=== PATIENT | female | born 1945 | race Caucasian/White ===

== ENCOUNTER 2021-08-21 14:26 | Emergency (ER) | payer OTHER, SELFPAY ==
--- NOTE | ~2021-08-21 | XR_ITS ---
EXAMINATION: XR CHEST CLINICAL INFORMATION: Chest pain. COMPARISON: None TECHNIQUE: Frontal view of the chest was obtained. FINDINGS: The lungs are well-expanded and clear. The heart size is enlarged. Pulmonary vascularity is normal. There is moderate spondylosis of dorsal spine. No lytic process seen. XR/XR chest 1V IMPRESSION: Unremarkable chest exam.
[2021-08-21 14:39] VITALS: BP 170/100; BP 182/104; PULSE 88; PULSE 90; RESP 18; TEMP 36.6; O2SAT 97; O2SAT 99; BMI 25.0
--- NOTE | 2021-08-21 14:56 | ED_ITS ---
HPI - Chest Pain General Chief Complaint: Chest Pain Stated Complaint: chest pain Time Seen by Provider: 08/21/21 14:55 Source: patient Limitations: no limitations History of Present Illness HPI narrative: This is a 75-year-old female who had eaten lunch about an hour prior to the onset of symptoms, she had eaten chicken broth and toast with tomato and vegan morton, and had gotten up to use the washing machine, developed pain that started in her epigastric area and then radiated up into her chest and then into her throat. The pain lasted until about the time the ambulance arrived. The patient did take 4 baby aspirin. The pain is gone now. She denies any associated shortness of breath. She denies any sweats or nausea. She denies any radiation of pain to her back, arm, shoulder. She does have history of non-Hodgkin's lymphoma about 15 years ago, in remission, also had pulmonary embolism in the distant past, is not currently on a anticoagulant. PE had been associated with long travel. The patient denies any history of hy pertension, diabetes, elevated cholesterol. She does have a family history of coronary artery disease in her mother, who had a CABG. She is not a tobacco smoker Related Data Allergies Allergy/AdvReac Type Severity Reaction Status Date / Time Iodinated Contrast Media Allergy Severe Anaphylaxis Verified 08/21/21 15:19 Review of Systems Review of Systems: Yes all other systems are reviewed and are negative Constitutional: Constitutional: Reports as per HPI and Denies fever(s) Eyes: Eyes: Reports as per HPI and Reports no additional eye complaints ENT: Reports system reviewed and no additional complaints, except as do cumented, Reports as per HPI, Denies nasal congestion, Denies nasal discharge and Denies sore throat Cardiovascular: Cardiovascular: Reports as per HPI, Reports chest pain and Denies dyspnea Respiratory: Respiratory: Reports as per HPI, Denies cough and Denies dyspnea Gastrointestinal: Gastrointestinal: Reports as per HPI, Reports abdominal pain, Denies diarrhea and Denies vomiting Genitourinary: Genitourinary: Reports as per HPI, Denies hematuria, Denies urinary frequency and Denies dysuria Musculoskeletal: Musculoskeletal: Reports no additional musculoskeletal complaints and Denies numbness Integumentary/Breasts: Skin/Breast: Reports as per HPI and Denies rash Neurologic: Reports as per HPI, Denies focal weakness, Denies numbness and Denies Sensory deficit (Neuro) Psychiatric: Psychiatric: Reports no additional psychiatric complaints and Reports as per HPI Endocrine: Endocrine: Reports no additional endocrine complaints and Reports as per HPI Hematologic/Lymphatic: Hematologic/Lymphatic: Reports no additional hematologic/lymphatic complaints, Reports as per HPI and Reports other (No peripheral edema) [facility] Social History Social History Alcohol intake: unknown Patient Tobacco Use Status: Tobacco use Unknown Use of substances other than those prescribed or required for medical reasons: No Advance Directives: No Advance Directives Information Provided: No Physical Exam Vital Signs: Vital Signs: Last Vital Signs Temp 97.8 F 08/21/21 14:39 Pulse 70 08/21/21 17:46 Resp 14 08/21/21 17:46 BP 182/104 H 08/21/21 14:39 Pulse Ox 99 08/21/21 17:46 Body Mass Index 25.0 Const: General: cooperative, no acute distress and alert Orientation/consciousness: patient oriented x3 HENMT: Head: Yes normal to inspection Eyes: General: appearance normal, both eyes and all related structures Eyelids: Yes eyelids normal Conjunctivae: conjunctivae normal Pupils: Equal, round and reactive pupils present Neck: Neck: Yes normal visual inspection and Yes supple Chest: Chest palpation & inspection: normal inspection of the chest Resp: Effort & Inspection: normal respiratory effort Auscultation: clear to auscultation bilaterally Cardio: Rate: regular rate Rhythm: regular rhythm Heart sounds: S1 normal heart sound present, S2 normal heart sound present, no gallops, no murmurs and no rubs GI: Palpation (GI): Soft to palpation, nontender and Other GI palpation findings present (Non-distended) Auscultation: normal bowel sounds Skin: General skin exam: no rashes or lesions noted Neuro: General: patient oriented x3, no focal motor deficits and CN's II-XI intact bilaterally Cranial nerves: Yes Equal, round and reactive pupils present Cognition (Neuro): normal cognition Motor exam (neuro): 5/5 motor strength present throughout Sensory Exam: No Sensory deficit (Neuro) Extrem: General: Yes normal to inspection and Yes no pedal edema Psych: Appearance: grossly normal Affect: normal affect MDM - Chest Pain MDM Narrative Medical decision making narrative: Patient with pain that began in her epigastric area and then radiated up into her chest. This occurred about an hour after eating lunch. Patient does have a prior history of cholecystectomy. Chest pain resolved prior to ED presentation and did not return during her ED stay. Initial troponin was negative. Repeat 3 hour troponin was also negative (this probably was actually more like 4 hours after onset of chest pain). EKG showed no concerning changes. Chest x-ray is negative. Given her overall clinical picture, this sounds like pain more likely a gastrointestinal etiology. Patient is safe for outpatient follow-up Lab Data Attestation: I reviewed the patient's lab results. Result diagrams: 08/21/21 15:46 08/21/21 15:46 Labs: Lab Results 08/21/21 08/21/21 08/21/21 Range/Units 15:46 15:46 15:46 WBC 5.3 (4.8-10.8) X10*3/uL RBC 4.53 (4.20-5.50) X10*6/uL Hgb 13.6 (12.0-16.0) g/dl Hct 40.5 (37-47) % MCV 89.4 (80-98) fL MCH 30.0 (27.0-33.0) pg MCHC 33.6 (31.0-35.0) g/dl RDW 14.0 (11.0-16.0) % Plt Count 192 (160-400) X10*3/uL MPV 9.9 (9.4-12.3) fL Immature Gran % (Auto) 0.2 (0.0-0.4) % Neut % (Auto) 53.4 (45-73) % Lymph % (Auto) 32.3 (20-40) % [place] % (Auto) 10.9 (2-11) % Eos % (Auto) 2.4 (0-4) % Baso % (Auto) 0.8 (0-2) % Lymph # (Auto) 1.7 (1.2-4.9) X10*3/uL [place] # (Auto) 0.6 (0.1-1.2) X10*3/uL Eos # (Auto) 0.1 (0.0-0.4) X10*3/uL Baso # (Auto) 0.0 (0.0-0.2) X10*3/uL Abs Immat Gran (auto) 0.01 (0.00-0.03) X10*3/uL Absolute Neuts (auto) 2.9 (2.0-8.3) X10*3/uL Absolute Nucleated RBC 0.000 (0.0-0.012) X10*3/uL Nucleated RBC % (auto) 0.0 (0.0-0.2) /100WBC Sodium 144 (135-145) mmol/L Potassium 3.9 (3.3-5.1) mmol/L Chloride 112 H (96-108) mmol/L Carbon Dioxide 26 (22-29) mmol/L Anion Gap 10 L (12-20) BUN 11 (9-16) mg/dL Creatinine 0.76 (0.5-1.4) mg/dL Estim Creat Clear Calc 56.6 Estimated GFR > 60 Random Glucose 103 (60-115) mg/dL Calcium 9.7 (8.4-10.2) mg/dL Total Bilirubin 0.4 (0.0-1.0) mg/dL AST 24 (5-31) U/L ALT 35 H (0-31) U/L Alkaline Phosphatase 106 (39-117) U/L Troponin I High Sens 3.8 (<3.5-17.0) ng/L Total Protein 6.4 L (6.5-8.0) g/dL Albumin 4.1 (3.5-5.0) g/dL 08/21/21 Range/Units 17:51 WBC (4.8-10.8) X10*3/uL RBC (4.20-5.50) X10*6/uL Hgb (12.0-16.0) g/dl Hct (37-47) % MCV (80-98) fL MCH (27.0-33.0) pg MCHC (31.0-35.0) g/dl RDW (11.0-16.0) % Plt Count (160-400) X10*3/uL MPV (9.4-12.3) fL Immature Gran % (Auto) (0.0-0.4) % Neut % (Auto) (45-73) % Lymph % (Auto) (20-40) % [place] % (Auto) (2-11) % Eos % (Auto) (0-4) % Baso % (Auto) (0-2) % Lymph # (Auto) (1.2-4.9) X10*3/uL [place] # (Auto) (0.1-1.2) X10*3/uL Eos # (Auto) (0.0-0.4) X10*3/uL Baso # (Auto) (0.0-0.2) X10*3/uL Abs Immat Gran (auto) (0.00-0.03) X10*3/uL Absolute Neuts (auto) (2.0-8.3) X10*3/uL Absolute Nucleated RBC (0.0-0.012) X10*3/uL Nucleated RBC % (auto) (0.0-0.2) /100WBC Sodium (135-145) mmol/L Potassium (3.3-5.1) mmol/L Chloride (96-108) mmol/L Carbon Dioxide (22-29) mmol/L Anion Gap (12-20) BUN (9-16) mg/dL Creatinine (0.5-1.4) mg/dL Estim Creat Clear Calc Estimated GFR Random Glucose (60-115) mg/dL Calcium (8.4-10.2) mg/dL Total Bilirubin (0.0-1.0) mg/dL AST (5-31) U/L ALT (0-31) U/L Alkaline Phosphatase (39-117) U/L Troponin I High Sens 4.9 (<3.5-17.0) ng/L Total Protein (6.5-8.0) g/dL Albumin (3.5-5.0) g/dL Imaging Data Chest x-ray: Radiologist's impression: IMPRESSION: Unremarkable chest exam. ? ECG Data ECG #1: ECG interpretation date: 08/21/21 Interpretation: Sinus rhythm with a rate of 67. Artifact present. Mild intraventricular conduction delay noted in lead the to. T-wave inversion in leads V1 and V2. V3 without T-wave inversion but somewhat uninterpretable due to artifact. Normal QRS axis. No ST elevation or depression. Scores Heart Score History: -0- slightly suspicious ECG: -0- normal Age: -2- > or = 65 Risk factory: -1- 1 or 2 risk factors Troponin: -0- < or = normal limit Score: 3 Risk: 1.7% Discharge Plan Discharge Clinical Impression: Atypical chest pain Patient Disposition: Home, Self-Care Instructions: Chest Pain (ED) Additional Instructions: Return for any new or worsened symptoms such as persistent chest pain, chest pain which occurs every time you exert herself, chest pain associated with nausea, sweats, shortness of breath. Follow-up with primary care physician next week for a blood pressure recheck and for possible referral for a stress test Interventions: ED Discharge Assessment Last Done: 08/21/21 18:47 Discharge Date/Time: 08/21/21 18:57
--- NOTE | 2021-08-21 15:19 | ECG_ITS ---
Test Reason : CHEST PAIN Blood Pressure : / mmHG Vent. Rate : 067 BPM Atrial Rate : 067 BPM P-R Int : 156 ms QRS Dur : 090 ms QT Int : 402 ms P-R-T Axes : 048 001 037 degrees QTc Int : 424 ms Normal sinus rhythm Nonspecific T wave abnormality Abnormal ECG No previous ECGs available Referred By: Deejay Weiner Electronically Signed By:CARA SCOTT MD
[2021-08-21 15:50] LABS: MANUAL DIFF FLAG NO
[2021-08-21 15:55] LABS: Basophils Percent Auto 0.8 % (0-2); Eosinophils Absolute Auto 0.1 X10*3/uL (0.0-0.4); Eosinophils Percent Auto 2.4 % (0-4); Hematocrit 40.5 % (37-47); Hemoglobin 13.6 g/dl (12.0-16.0); Imm Gran Abs Auto 0.01 X10*3/uL (0.00-0.03); Imm Gran Pct Auto 0.2 % (0.0-0.4); Lymphocytes Absolute Auto 1.7 X10*3/uL (1.2-4.9); Lymphocytes Percent Auto 32.3 % (20-40); Mean Corpuscular HGB Conc 33.6 g/dl (31.0-35.0); Mean Corpuscular Volume 89.4 fL (80-98); Mean Platelet Volume 9.9 fL (9.4-12.3); Monocytes Absolute Auto 0.6 X10*3/uL (0.1-1.2); Monocytes Percent Auto 10.9 % (2-11); Neutrophils Absolute Auto 2.9 X10*3/uL (2.0-8.3); Neutrophils Percent Auto 53.4 % (45-73); Platelet Count 192 X10*3/uL (160-400); Red Blood Count 4.53 X10*6/uL (4.20-5.50); White Blood Count 5.3 X10*3/uL (4.8-10.8)
[2021-08-21 16:10] LABS: Alanine Aminotransferase 35 U/L (0-31); Albumin Level 4.1 g/dL (3.5-5.0); Alkaline Phosphatase 106 U/L (39-117); Anion Gap 10 (12-20); Aspartate Amino Transferase 24 U/L (5-31); Bilirubin Total 0.4 mg/dL (0.0-1.0); Blood Urea Nitrogen 11 mg/dL (9-16); Calcium 9.7 mg/dL (8.4-10.2); Carbon Dioxide 26 mmol/L (22-29); Chloride 112 mmol/L (96-108); Creatinine Clr Calc Pharmacy 56.6; Estimated Glomerular Filt Rate > 60; Glucose Random 103 mg/dL (60-115); Potassium 3.9 mmol/L (3.3-5.1); Sodium 144 mmol/L (135-145); Total Protein 6.4 g/dL (6.5-8.0)
[2021-08-21 16:14] LABS: Troponin-I High Sensitivity 3.8 ng/L (<3.5-17.0)
[2021-08-21 17:46] VITALS: PULSE 70; RESP 14; O2SAT 99
[2021-08-21 18:27] LABS: Troponin-I High Sensitivity 4.9 ng/L (<3.5-17.0)
== END 2021-08-21 18:57 | disposition home or self-care (01) ==
PROVIDERS: Emergency Provider Emergency Medicine
DX: R07.89 Other chest pain (principal); Z85.71 Personal history of Hodgkin lymphoma
CPT/HCPCS: 36415; 71045; 80053; 84484; 85025; 93005; 99283; 99285